=== PATIENT | female | born 1945 | race Caucasian/White ===

== ENCOUNTER 2020-03-30 02:59 | Inpatient (IN) | payer MEDICARE, OTHER ==
[2020-03-30] MEDS ORDERED: Sodium Chloride 0.9% 10 ML Syringe FLUSH PRN (03:21)
[2020-03-30] MEDS ORDERED: Lactated Ringers 1,000 ML IV ONE (03:30)
[2020-03-30] MEDS ORDERED: Ondansetron 4 MG/2 ML SDV IV ONE (03:30)
[2020-03-30 04:24] LABS: CHLORIDE,CL 89 mmol/L (98-107)
[2020-03-30 04:25] LABS: ANION GAP 13.7 mmol/L (10-20); SODIUM,NA 124 mmol/L (136-145)
[2020-03-30] MEDS ORDERED: Magnesium Oxide 400 MG Tab PO ONE (05:05)
[2020-03-30] MEDS ORDERED: Magnesium Sulfate/Water 2 GM/50 ML Premix Bag IV ONE (05:05)
[2020-03-30] MEDS: Sodium Chloride 0.9% 1,000 ML IV SCH ×2 (07:30→13:22)
--- NOTE | 2020-03-30 07:39 | EDM.PDOC ---
ED HPI GENERAL MEDICAL PROBLEM - General Chief Complaint: Gastrointestinal Problem Stated Complaint: diarrhea weakness Time Seen by Provider: 03/30/20 03:15 Source of Information: Reports: Patient History Limitations: Reports: No Limitations - History of Present Illness INITIAL COMMENTS - FREE TEXT/NARRATIVE: Patient comes emergency department early this morning with complaints of weakness fatigue and diarrhea. This patient was seen in the clinic yesterday due to a diarrhea that she has had for the past couple of days. She has having 4-8 very liquidy watery stools that has some abdominal cramping with them. She has had no fever or chills. No loss of taste or smell. No cough congestion shortness of breath or difficulty breathing. No fever no chills. No chest pain shortness of breath or difficulty breathing. She does have some abdominal cramping and pain when she has diarrhea but she does not have any abdominal pain otherwise. Some nausea without vomiting. No hematuria dysuria or urinary frequency. No black or tarry stools. She has not traveled anywhere recently she has not been exposed to anyone ill. She has not been on any antibiotics recently either. Treatments SENIOR SOLUTIONS ARCHITECT: Reports: EKG Other Treatments SENIOR SOLUTIONS ARCHITECT: Glucose 122 - Related Data Allergies Allergy/AdvReac Type Severity Reaction Status Date / Time No Known Allergies Allergy Verified 03/30/20 03:33 Home Meds: Home Meds Calcium Carbonate/Vitamin D3 [Calcium 500 + Vit D 400] 1 each PO BIDMEALS 03/30/20 [History] Garlic 1 each PO DAILY 03/30/20 [History] Multivitamin [Multivitamins] 1 each PO DAILY 03/30/20 [History] [place]-3/DHA/Epa/Fish Oil [Fish Oil 1,000 mg Softgel] 1 cap PO DAILY 03/30/20 [History] Simvastatin 10 mg PO DAILY 03/30/20 [History] atenoloL [Atenolol] 25 mg PO DAILY 03/30/20 [History] Past Medical History Cardiovascular History: Reports: High Cholesterol, Hypertension Musculoskeletal History: Reports: Osteoporosis Social & Family History - Tobacco Use Tobacco Use Status *Q: Never Tobacco User ED ROS GENERAL - Review of Systems Review Of Systems: Comprehensive ROS is negative, except as noted in HPI. ED EXAM, GI/ABD - Physical Exam Exam: See Below Exam Limited By: No Limitations General Appearance: Alert, WD/WN, No Apparent Distress Eyes: Bilateral: EOMI Ears: Normal External Exam Nose: Normal Inspection Throat/Mouth: No: Normal Inspection (Oral mucosa is dry. ) Head: Atraumatic, Normocephalic Neck: Normal Inspection, Supple, Non-Tender, Full Range of Motion Respiratory/Chest: No Respiratory Distress, Lungs Clear, Normal Breath Sounds, No Accessory Muscle Use, Chest Non-Tender Cardiovascular: Normal Peripheral Pulses, Regular Rate, Rhythm, Tachycardia GI/Abdominal Exam: Normal Bowel Sounds, Soft, Tender (She has some mild generalized tendernss without guarding or rebound. ), Abnormal Bowel Sounds (Hyperactive. ) (Female) Exam: Deferred Rectal (Female) Exam: Deferred Back Exam: Normal Inspection, Full Range of Motion Extremities: Normal Inspection, Normal Range of Motion, Non-Tender, No Pedal Edema, Normal Capillary Refill Neurological: Alert, Oriented, CN II-XII Intact, Normal Cognition, No Motor/Sensory Deficits Psychiatric: Normal Affect, Normal Mood Skin Exam: Dry, Intact, Normal Color, Cool Course - Vital Signs Last Recorded V/S: Last Vital Signs Temp 98.7 F 03/30/20 03:05 Pulse 94 03/30/20 06:40 Resp 16 03/30/20 06:40 BP 132/89 03/30/20 06:40 Pulse Ox 94 L 03/30/20 06:40 Orthostatic Blood Pressure [ 132/78 Standing] Orthostatic Blood Pressure [ 127/73 Sitting] Orthostatic Blood Pressure [ 131/81 Supine] - Orders/Labs/Meds Orders: Active Orders 24 hr Category Date Time Status Admission Status [Patient Status] [ADT] Routine ADT 03/30/20 07:36 Active EKG Documentation Completion [RC] STAT Care 03/30/20 03:21 Active CLOSTRIDIUM DIFFICILE TOX RFLX [MREF] Stat Lab 03/30/20 03:30 Ordered CORONAVIRUS COVID-19 RAPID [MOLEC] Stat Lab 03/30/20 07:15 Received CULTURE URINE [RM] Urgent Lab 03/30/20 05:20 Received Sodium Chloride 0.9% [Saline Flush] Med 03/30/20 03:21 Active 10 ml FLUSH ASDIRECTED PRN Isolation [COMM] Stat Oth 03/30/20 03:31 Ordered Peripheral IV Insertion Adult [OM.PC] Stat Oth 03/30/20 03:21 Ordered Medication Orders Sodium Chloride (Saline Flush) 10 ml FLUSH ASDIRECTED PRN PRN Reason: Keep Vein Open Labs: Laboratory Tests 03/30/20 03/30/20 03/30/20 Range/Units 03:55 03:55 03:55 WBC 2.9 L (4.0-10.0) x10^3/uL RBC 4.27 (4.00-5.50) x10^6/uL Hgb 13.3 (12.0-16.0) g/dL Hct 37.7 (33.0-47.0) % MCV 88.3 (78.0-93.0) fL MCH 31.1 (26.0-32.0) pg MCHC 35.3 (32.0-36.0) g/dL RDW Coeff of Amado 11.5 (10.0-15.0) % Plt Count 147 (130-400) x10^3/uL Add Manual Diff Yes Neutrophils % (Manual) 56 (50-80) % Band Neutrophils % 18 H (0-6) % Lymphocytes % (Manual) 12 L (25-50) % Monocytes % (Manual) 11 (2-11) % Metamyelocytes % 3 H (0) % Platelet Estimate Adequate Sodium 124 L* (136-145) mmol/L Potassium 3.7 (3.5-5.1) mmol/L Chloride 89 L (98-107) mmol/L Carbon Dioxide 25 (21-32) mmol/L Anion Gap 13.7 (10-20) mmol/L BUN 9 (7-18) mg/dL Creatinine 1.1 H (0.55-1.02) mg/dL Est Cr Clr Drug Dosing 39.92 mL/min Estimated GFR (MDRD) 49 Glucose 116 H (74-106) mg/dL Lactic Acid 1.1 (0.4-2.0) mmol/L Calcium 8.2 L (8.5-10.1) mg/dL Corrected Calcium 8.52 (8.5-10.1) mg/dL Magnesium 1.4 L (1.8-2.4) mg/dL Total Bilirubin 0.5 (0.2-1.0) mg/dL AST 28 (15-37) U/L ALT 21 (14-59) U/L Alkaline Phosphatase 68 (46-116) U/L Troponin I < 0.017 (<=0.056) ng/mL Total Protein 7.5 (6.4-8.2) g/dL Albumin 3.6 (3.4-5.0) g/dL Globulin 3.9 Albumin/Globulin Ratio 0.92 Urine Color (YELLOW) POC Urine Appearance (CLEAR) POC Urine pH (5.0-8.0) Ur Specific [place] (1.005-1.030) POC Urine Protein (NEGATIVE) POC Ur Glucose (UA) (NEGATIVE) POC Urine Ketones (NEGATIVE) POC Ur Occult Blood (NEGATIVE) POC Urine Nitrite (NEGATIVE) POC Urine Bilirubin (NEGATIVE) POC Urine Urobilinogen (0.2) POC U Leukocyte Esteras (NEGATIVE) Urine RBC (NOT SEEN) /HPF Urine WBC (NOT SEEN) /HPF Ur Squamous Epith Cells (NOT SEEN) /HPF Urine Bacteria (NOT SEEN) Urine Mucus (NOT SEEN) 03/30/20 Range/Units 05:20 WBC (4.0-10.0) x10^3/uL RBC (4.00-5.50) x10^6/uL Hgb (12.0-16.0) g/dL Hct (33.0-47.0) % MCV (78.0-93.0) fL MCH (26.0-32.0) pg MCHC (32.0-36.0) g/dL RDW Coeff of Amado (10.0-15.0) % Plt Count (130-400) x10^3/uL Add Manual Diff Neutrophils % (Manual) (50-80) % Band Neutrophils % (0-6) % Lymphocytes % (Manual) (25-50) % Monocytes % (Manual) (2-11) % Metamyelocytes % (0) % Platelet Estimate Sodium (136-145) mmol/L Potassium (3.5-5.1) mmol/L Chloride (98-107) mmol/L Carbon Dioxide (21-32) mmol/L Anion Gap (10-20) mmol/L BUN (7-18) mg/dL Creatinine (0.55-1.02) mg/dL Est Cr Clr Drug Dosing mL/min Estimated GFR (MDRD) Glucose (74-106) mg/dL Lactic Acid (0.4-2.0) mmol/L Calcium (8.5-10.1) mg/dL Corrected Calcium (8.5-10.1) mg/dL Magnesium (1.8-2.4) mg/dL Total Bilirubin (0.2-1.0) mg/dL AST (15-37) U/L ALT (14-59) U/L Alkaline Phosphatase (46-116) U/L Troponin I (<=0.056) ng/mL Total Protein (6.4-8.2) g/dL Albumin (3.4-5.0) g/dL Globulin Albumin/Globulin Ratio Urine Color Maylin H (YELLOW) POC Urine Appearance Clear (CLEAR) POC Urine pH 6.5 (5.0-8.0) Ur Specific [place] 1.005 (1.005-1.030) POC Urine Protein Trace H (NEGATIVE) POC Ur Glucose (UA) Negative (NEGATIVE) POC Urine Ketones >=160 H (NEGATIVE) POC Ur Occult Blood Negative (NEGATIVE) POC Urine Nitrite Negative (NEGATIVE) POC Urine Bilirubin Negative (NEGATIVE) POC Urine Urobilinogen 0.2 (0.2) POC U Leukocyte Esteras Small H (NEGATIVE) Urine RBC 0-5 (NOT SEEN) /HPF Urine WBC 0-5 (NOT SEEN) /HPF Ur Squamous Epith Cells Rare H (NOT SEEN) /HPF Urine Bacteria Not seen (NOT SEEN) Urine Mucus Not seen (NOT SEEN) Meds: Medications Generic Name Dose Route Start Last Admin Trade Name Freq PRN Reason Stop Dose Admin Sodium Chloride 10 ml 03/30/20 03:21 Saline Flush FLUSH ASDIRECTED PRN Keep Vein Open Discontinued Medications Generic Name Dose Route Start Last Admin Trade Name Freq PRN Reason Stop Dose Admin Lactated Ringer's 1,000 mls @ 999 mls/hr 03/30/20 03:30 03/30/20 03:36 Ringers, Lactated IV 03/30/20 04:30 999 mls/hr ONETIME ONE Administration Magnesium Oxide 400 mg 03/30/20 05:05 03/30/20 05:11 Magnesium Oxide PO 03/30/20 05:06 400 mg ONETIME ONE Administration Magnesium Sulfate 2 gm 03/30/20 05:05 03/30/20 05:11 Magnesium Sulfate In Water Premix IV 03/30/20 05:06 2 gm ONETIME ONE Administration Ondansetron HCl 4 mg 03/30/20 03:30 03/30/20 03:37 Zofran IV 03/30/20 03:31 4 mg ONETIME ONE Administration - Re-Assessments/Exams Free Text/Narrative Re-Assessment/Exam: 03/30/20 07:51 Stool culture pending. Labs drawn Zofran 4mg IVP LR 500ml bolus and then 200mls/hr Magnesium is low at 1.4, 2 grams IVPB of mag sulfate and 400mg PO. Sodium is 124 which is down from 126 in the clinic yesterday. Her COVID test is pending. She has a mildly elevated Creat as well at 1.1 which is up from 0.95 yesterday in the clinic. After a liter of fluid she still feels very tired and fatigued and just generalizer malaise as well. With her sodium and diarrhea I called and spoke with DR. Mejia who is the patient PCP. HPI ER COURSE findings and concerns were relayed to her verbally over the phone. She accepted the patient into her care for inpatient management and wants a rapid covid test. COVID rapid positive. I discussed the plan of care with the patient. I discussed that she is also COVID positive. She will have to notify her family members in close contacts for quarantine. She is comfortable with the plan of admission her questions are answered. Departure - Departure Time of Disposition: 07:03 Disposition: Admitted As Inpatient 68 Clinical Impression: Hyponatremia, COVID-19, ROSEANNE (acute kidney injury) Diarrhea Qualifiers: Diarrhea type: unspecified type Qualified Code(s): R19.7 - Diarrhea, unspecified - Discharge Information Referrals: Paulette Mejia MD [Primary Care Provider] - Forms: ED Department Discharge Sepsis Event Note (ED) - Evaluation Sepsis Screening Result: No Definite Risk - Focused Exam Vital Signs: Vital Signs Temp Pulse Resp BP Pulse Ox 03/30/20 06:40 94 16 132/89 94 L 03/30/20 04:53 90 16 135/79 99 03/30/20 03:45 96 16 145/85 H 97 03/30/20 03:05 98.7 F 106 H 16 156/92 H 98 - My Orders Last 24 Hours: My Active Orders 03/30/20 03:21 EKG Documentation Completion [RC] STAT Sodium Chloride 0.9% [Saline Flush] 10 ml FLUSH ASDIRECTED PRN Peripheral IV Insertion Adult [OM.PC] Stat 03/30/20 03:30 CLOSTRIDIUM DIFFICILE TOX RFLX [MREF] Stat 03/30/20 03:31 Isolation [COMM] Stat 03/30/20 05:20 CULTURE URINE [RM] Urgent 03/30/20 07:15 CORONAVIRUS COVID-19 RAPID [MOLEC] Stat 03/30/20 07:36 Admission Status [Patient Status] [ADT] Routine - Assessment/Plan Last 24 Hours: My Active Orders 03/30/20 03:21 EKG Documentation Completion [RC] STAT Sodium Chloride 0.9% [Saline Flush] 10 ml FLUSH ASDIRECTED PRN Peripheral IV Insertion Adult [OM.PC] Stat 03/30/20 03:30 CLOSTRIDIUM DIFFICILE TOX RFLX [MREF] Stat 03/30/20 03:31 Isolation [COMM] Stat 03/30/20 05:20 CULTURE URINE [RM] Urgent 03/30/20 07:15 CORONAVIRUS COVID-19 RAPID [MOLEC] Stat 03/30/20 07:36 Admission Status [Patient Status] [ADT] Routine
--- NOTE | 2020-03-30 10:08 | PCM.HP.2 ---
H&P History of Present Illness - General Date of Service: 03/30/20 Admit Problem/Dx: Admission Diagnosis/Problem Admission Diagnosis/Problem Hyponatremia Source of Information: Patient History Limitations: Reports: No Limitations - History of Present Illness Initial Comments - Free Text/Narative: Ms. Doe is a 74 yo female with PMH of hypertension, hyperlipidemia, and over weight BMI who presented to the ER for evaluation of worsening generalized weakness over the past 24 hours. I had seen her yesterday via telemedicine for evaluation of diarrhea, fatigue, and generalized weakness that had been progressively worsening over the preceding 4 days. She had been having at least 3 loose stools/day. She underwent a COVID test as well as a CBC and BMP. COVID test is pending, CBC was normal, and BMP showed moderate hyponatremia. She was advised to increase intake of electrolyte containing solutions and come in for a recheck of labs today. However, overnight, she felt more generally weak and tired so presented to the ER for further evaluation. She did take 2 Imodium yes terday, which has basically resolved her diarrhea. She still has an unsettled feeling in her stomach and has basically no appetite. She has not had any abdominal pain and no vomiting. She has not had any respiratory symptoms at all. She denies any fever or chills. She was exposed to COVID about 2 weeks ago when she was around a friend who had this. - Related Data Allergies/Adverse Reactions: Allergies Allergy/AdvReac Type Severity Reaction Status Date / Time No Known Allergies Allergy Verified 03/30/20 03:33 Home Medications: Home Meds Calcium Carbonate/Vitamin D3 [Calcium 500 + Vit D 400] 1 each PO BIDMEALS 03/15 12/02 [History] Garlic 1 each PO DAILY 03/30/20 [History] Multivitamin [Multivitamins] 1 each PO DAILY 03/30/20 [History] [place]-3/DHA/Epa/Fish Oil [Fish Oil 1,000 mg Softgel] 1 cap PO DAILY 03/30/20 [H istory] Simvastatin 10 mg PO DAILY 03/30/20 [History] atenoloL [Atenolol] 25 mg PO DAILY 03/30/20 [History] Past Medical History Cardiovascular History: Reports: High Cholesterol, Hypertension Musculoskeletal History: Reports: Osteoporosis - Infectious Disease History Infectious Disease History: Reports: Novel Coronavirus - Past Surgical History HEENT Surgical History: Reports: Oral Surgery GI Surgical History: Reports: Colonoscopy Social & Family History - Family History Cardiac: Reports: CAD - Tobacco Use Tobacco Use Status *Q: Never Tobacco User Used Tobacco, but Quit: No Second Hand Smoke Exposure: No - Caffeine Use Caffeine Use: Reports: Coffee Caffeine Use Comment: 1 cups a day - Alcohol Use Alcohol Use History: No Alcohol Use in Last Twelve Months: No - Recreational Drug Use Recreational Drug Use: No - Living Situation & Occupation Living situation: Reports: , Alone Occupation: Retired H&P Review of Systems - Review of Systems: Review Of Systems: See Below General: Reports: Malaise, Weakness, Fatigue, Decreased Appetite. Denies: Fever, Chills HEENT: Reports: No Symptoms Pulmonary: Reports: No Symptoms Cardiovascular: Reports: No Symptoms Gastrointestinal: Reports: Diarrhea, Decreased Appetite Genitourinary: Reports: No Symptoms Musculoskeletal: Reports: No Symptoms Skin: Reports: No Symptoms Psychiatric: Reports: No Symptoms Neurological: Reports: No Symptoms Exam - Exam Exam: See Below - Vital Signs Vital Signs: Last Vital Signs Temp 37.2 C 03/30/20 09:47 Pulse 97 03/30/20 09:47 Resp 18 03/30/20 08:02 BP 151/83 H 03/30/20 09:47 Pulse Ox 91 L 03/30/20 09:47 Orthostatic Blood Pressure [ 132/78 Standing] Orthostatic Blood Pressure [ 127/73 Sitting] Orthostatic Blood Pressure [ 131/81 Supine] Weight: 77.7 kg - Exam General: Alert, Oriented, Cooperative HEENT: Conjunctiva Clear, Mucosa Moist & [place] Neck: Supple, Trachea Midline Lungs: Clear to Auscultation, Normal Respiratory Effort Cardiovascular: Regular Rate, Regular Rhythm, Normal S1, Normal S2 GI/Abdominal Exam: Normal Bowel Sounds, Soft, Non-Tender, No Organomegaly, No Distention, No Mass Extremities: Normal Inspection, Non-Tender, No Pedal Edema Peripheral Pulses: 2+: Radial (L), Radial (R) Skin: Warm, Dry, Intact Neuro Extensive - Mental Status: Alert, Oriented x3, Normal Mood/Affect, Normal Cognition - Patient Data Lab Results Last 24 hrs: Laboratory Results - last 24 hr 03/30/20 03/30/20 03/30/20 Range/Units 03:55 03:55 03:55 WBC 2.9 L (4.0-10.0) x10^3/uL RBC 4.27 (4.00-5.50) x10^6/uL Hgb 13.3 (12.0-16.0) g/dL Hct 37.7 (33.0-47.0) % MCV 88.3 (78.0-93.0) fL MCH 31.1 (26.0-32.0) pg MCHC 35.3 (32.0-36.0) g/dL RDW Coeff of Amado 11.5 (10.0-15.0) % Plt Count 147 (130-400) x10^3/uL Add Manual Diff Yes Neutrophils % (Manual) 56 (50-80) % Band Neutrophils % 18 H (0-6) % Lymphocytes % (Manual) 12 L (25-50) % Monocytes % (Manual) 11 (2-11) % Metamyelocytes % 3 H (0) % Platelet Estimate Adequate Sodium 124 L* (136-145) mmol/L Potassium 3.7 (3.5-5.1) mmol/L Chloride 89 L (98-107) mmol/L Carbon Dioxide 25 (21-32) mmol/L Anion Gap 13.7 (10-20) mmol/L BUN 9 (7-18) mg/dL Creatinine 1.1 H (0.55-1.02) mg/dL Est Cr Clr Drug Dosing 39.92 mL/min Estimated GFR (MDRD) 49 Glucose 116 H (74-106) mg/dL Lactic Acid 1.1 (0.4-2.0) mmol/L Calcium 8.2 L (8.5-10.1) mg/dL Corrected Calcium 8.52 (8.5-10.1) mg/dL Magnesium 1.4 L (1.8-2.4) mg/dL Total Bilirubin 0.5 (0.2-1.0) mg/dL AST 28 (15-37) U/L ALT 21 (14-59) U/L Alkaline Phosphatase 68 (46-116) U/L Troponin I < 0.017 (<=0.056) ng/mL Total Protein 7.5 (6.4-8.2) g/dL Albumin 3.6 (3.4-5.0) g/dL Globulin 3.9 Albumin/Globulin Ratio 0.92 Urine Color (YELLOW) POC Urine Appearance (CLEAR) POC Urine pH (5.0-8.0) Ur Specific [place] (1.005-1.030) POC Urine Protein (NEGATIVE) POC Ur Glucose (UA) (NEGATIVE) POC Urine Ketones (NEGATIVE) POC Ur Occult Blood (NEGATIVE) POC Urine Nitrite (NEGATIVE) POC Urine Bilirubin (NEGATIVE) POC Urine Urobilinogen (0.2) POC U Leukocyte Esteras (NEGATIVE) Urine RBC (NOT SEEN) /HPF Urine WBC (NOT SEEN) /HPF Ur Squamous Epith Cells (NOT SEEN) /HPF Urine Bacteria (NOT SEEN) Urine Mucus (NOT SEEN) SARS CoV-2 RNA Rapid HARPER (NEGATIVE) 03/30/20 03/30/20 Range/Units 05:20 07:15 WBC (4.0-10.0) x10^3/uL RBC (4.00-5.50) x10^6/uL Hgb (12.0-16.0) g/dL Hct (33.0-47.0) % MCV (78.0-93.0) fL MCH (26.0-32.0) pg MCHC (32.0-36.0) g/dL RDW Coeff of Amado (10.0-15.0) % Plt Count (130-400) x10^3/uL Add Manual Diff Neutrophils % (Manual) (50-80) % Band Neutrophils % (0-6) % Lymphocytes % (Manual) (25-50) % Monocytes % (Manual) (2-11) % Metamyelocytes % (0) % Platelet Estimate Sodium (136-145) mmol/L Potassium (3.5-5.1) mmol/L Chloride (98-107) mmol/L Carbon Dioxide (21-32) mmol/L Anion Gap (10-20) mmol/L BUN (7-18) mg/dL Creatinine (0.55-1.02) mg/dL Est Cr Clr Drug Dosing mL/min Estimated GFR (MDRD) Glucose (74-106) mg/dL Lactic Acid (0.4-2.0) mmol/L Calcium (8.5-10.1) mg/dL Corrected Calcium (8.5-10.1) mg/dL Magnesium (1.8-2.4) mg/dL Total Bilirubin (0.2-1.0) mg/dL AST (15-37) U/L ALT (14-59) U/L Alkaline Phosphatase (46-116) U/L Troponin I (<=0.056) ng/mL Total Protein (6.4-8.2) g/dL Albumin (3.4-5.0) g/dL Globulin Albumin/Globulin Ratio Urine Color Maylin H (YELLOW) POC Urine Appearance Clear (CLEAR) POC Urine pH 6.5 (5.0-8.0) Ur Specific [place] 1.005 (1.005-1.030) POC Urine Protein Trace H (NEGATIVE) POC Ur Glucose (UA) Negative (NEGATIVE) POC Urine Ketones >=160 H (NEGATIVE) POC Ur Occult Blood Negative (NEGATIVE) POC Urine Nitrite Negative (NEGATIVE) POC Urine Bilirubin Negative (NEGATIVE) POC Urine Urobilinogen 0.2 (0.2) POC U Leukocyte Esteras Small H (NEGATIVE) Urine RBC 0-5 (NOT SEEN) /HPF Urine WBC 0-5 (NOT SEEN) /HPF Ur Squamous Epith Cells Rare H (NOT SEEN) /HPF Urine Bacteria Not seen (NOT SEEN) Urine Mucus Not seen (NOT SEEN) SARS CoV-2 RNA Rapid HARPER Positive H (NEGATIVE) Result Diagrams: 03/30/20 03:55 03/30/20 03:55 Sepsis Event Note - Evaluation Sepsis Screening Result: No Definite Risk - Focused Exam Vital Signs: Vital Signs Temp Pulse Resp BP Pulse Ox 03/30/20 09:47 37.2 C 97 151/83 H 91 L 03/30/20 08:02 36.8 C 98 18 137/85 93 L 03/30/20 06:40 94 16 132/89 94 L 03/30/20 04:53 90 16 135/79 99 03/30/20 03:45 96 16 145/85 H 97 03/30/20 03:05 37.1 C 106 H 16 156/92 H 98 - Problem List (1) Hyponatremia SNOMED Code(s): 50306112 ICD Code: E87.1 - HYPO-OSMOLALITY AND HYPONATREMIA Status: Acute Current Visit: Yes (2) COVID-19 SNOMED Code(s): 139952386 ICD Code: U07.1 - COVID-19 Status: Acute Current Visit: Yes (3) Hypertension SNOMED Code(s): 28647309 ICD Code: I10 - ESSENTIAL (PRIMARY) HYPERTENSION Status: Chronic Current Visit: Yes Qualifiers: Hypertension type: essential hypertension Qualified Code(s): I10 - Essential (primary) hypertension (4) Hyperlipidemia SNOMED Code(s): 52067208 ICD Code: E78.5 - HYPERLIPIDEMIA, UNSPECIFIED Status: Chronic Current Visit: Yes Qualifiers: Hyperlipidemia type: unspecified Qualified Code(s): E78.5 - Hyperlipidemia, unspecified (5) Overweight SNOMED Code(s): 590121555 ICD Code: E66.3 - OVERWEIGHT Status: Chronic Current Visit: Yes Problem List Initiated/Reviewed/Updated: Yes Orders Last 24hrs: Active Orders 24 hr Category Date Time Status Admission Status [Patient Status] [ADT] Routine ADT 03/30/20 07:36 Active Notify Provider Vital Signs [RC] ASDIRECTED Care 03/30/20 09:47 Ordered Oxygen Therapy [RC] PRN Care 03/30/20 09:47 Ordered VTE/DVT Education [RC] PER UNIT ROUTINE Care 03/30/20 09:47 Ordered Vital Signs [RC] Q4H Care 03/30/20 09:47 Ordered Regular Diet [DIET] Diet 03/30/20 Lunch Ordered BASIC METABOLIC PANEL,BMP [CHEM] Routine Lab 03/30/20 15:00 Ordered CULTURE URINE [RM] Urgent Lab 03/30/20 05:20 Received Enoxaparin [Lovenox] Med 03/30/20 10:00 Ordered 40 mg SUBCUT DAILY Simvastatin [Zocor] Med 03/31/20 08:00 Ordered 10 mg PO DAILY Sodium Chloride 0.9% [Normal Saline] 1,000 ml Med 03/30/20 08:00 Active IV ASDIRECTED Sodium Chloride 0.9% [Saline Flush] Med 03/30/20 03:21 Active 10 ml FLUSH ASDIRECTED PRN atenoloL [Tenormin] Med 03/30/20 10:00 Ordered 25 mg PO DAILY Isolation [COMM] Stat Oth 03/30/20 03:31 Ordered Peripheral IV Insertion Adult [OM.PC] Stat Oth 03/30/20 03:21 Ordered Resuscitation Status Routine Resus Stat 03/30/20 09:47 Ordered Medication Orders Atenolol (Tenormin) 25 mg PO DAILY JOHANNY Enoxaparin Sodium (Lovenox) 40 mg SUBCUT DAILY JOHANNY Sodium Chloride (Normal Saline) 1,000 mls @ 125 mls/hr IV ASDIRECTED JOHANNY Last Admin: 03/30/20 07:30 Dose: 125 mls/hr Documented by: WILBERT Simvastatin (Zocor) 10 mg PO DAILY JOHANNY Sodium Chloride (Saline Flush) 10 ml FLUSH ASDIRECTED PRN PRN Reason: Keep Vein Open Assessment/Plan Comment:: 74 yo female admitted with hyponatremia secondary to diarrhea related to COVID- 19. #1 Hyponatremia - Likely related to losses from diarrhea. In the absence of lung symptoms, unlikely to represent SIADH. - Presumed to be acute given abrupt onset of symptoms and sodium of 135 checked 1 month ago. - Will give 0.9% NaCl @ 125 cc/hr to replace volume. - Recheck sodium around noon. - If improving at an appropriate rate (goal 8-12 mEq/24 hours), will continue the same. Will adjust as needed. - If sodium has worsened, then this is likely an SIADH type picture and treatment then would be fluid restriction. #2 COVID-19 - Patient has only GI symptoms and no respiratory symptoms. Lungs are clear. - Given absence of respiratory symptoms, there is no role for dexamethasone or remdesivir. - Will continue to monitor closely. #3 Hypertension #4 Hyperlipidemia #5 Overweight - Continue home medications. Patient will be admitted to acute - anticipate she will be admitted for 2 mid nights but even if she is not, her diagnoses warrant inpatient status anyway. Code status is full - discussed on admission. Patient will be started on lovenox for VTE prophylaxis.
[2020-03-30] MEDS: Enoxaparin 40 MG/0.4 ML Syringe SUBCUT SCH (10:45)
[2020-03-30] MEDS: Acetaminophen 325 MG Tab PO PRN (10:46)
[2020-03-30] MEDS: Atenolol 25 MG Tab PO SCH (10:46)
[2020-03-30 12:54] LABS: ANION GAP 14.5 mmol/L (10-20)
--- NOTE | 2020-03-30 12:59 | PCM.SN.2 ---
- Free Text/Narrative Note: Sodium is up to 130 but creatinine is also increased. Will decrease fluid rate to 50 cc/hr and recheck again at 6 pm. Note need to be judicious with IV fluids in the setting of COVID, even in the absence of respiratory symptoms; however, would not d/c the fluids yet given creatinine increase. If sodium stable/improve d at 6 pm recheck, will d/c IV fluids and recheck in the am. Will also place her on continuous pulse oximetry as well.
[2020-03-30] MEDS: Zinc (Zinc Gluconate) 50 MG Tab PO SCH (16:56)
[2020-03-30] MEDS: Cholecalciferol (Vitamin D3) 25 MCG Tab PO SCH (16:56)
[2020-03-30 18:28] LABS: ANION GAP 14.4 mmol/L (10-20)
[2020-03-30] MEDS: Ondansetron 4 MG Tab.DIS PO PRN (18:51)
[2020-03-30] MEDS: Ascorbic Acid 500 MG Tab PO SCH (20:18)
[2020-03-31] MEDS: Enoxaparin 40 MG/0.4 ML Syringe SUBCUT SCH (08:27)
[2020-03-31] MEDS: Cholecalciferol (Vitamin D3) 25 MCG Tab PO SCH (08:28)
[2020-03-31] MEDS: Ascorbic Acid 500 MG Tab PO SCH ×2 (08:28→20:55)
[2020-03-31] MEDS: Zinc (Zinc Gluconate) 50 MG Tab PO SCH (08:28)
[2020-03-31] MEDS: Atenolol 25 MG Tab PO SCH (08:29)
[2020-03-31] MEDS: Simvastatin 10 MG Tab PO SCH (08:31)
[2020-03-31] MEDS ORDERED: Loperamide 2 MG Cap PO PRN (11:17)
[2020-03-31] MEDS: Acetaminophen 325 MG Tab PO PRN ×2 (11:37→21:03)
[2020-03-31] MEDS: Ondansetron 4 MG Tab.DIS PO PRN (11:37)
--- NOTE | 2020-03-31 12:01 | PN ---
Progress Note for ASHLEE KILPATRICKP Date: 03/31/2020 Room #: VM.210 CHIEF COMPLAINT: Hyponatremia. SUBJECTIVE: A 74-year-old female patient with a past medical history of hypertension, hyperlipidemia, and elevated BMI, was admitted to the acute care floor yesterday for hyponatremia and weakness. The patient originally had a 3- to 4-day history of progressively getting weak and was seen by Telemedicine and evaluated for diarrhea and fatigue. The patient did come into the emergency room yesterday and was found to be hyponatremic. The patient states today that she is having considerable diarrhea. The patient is feeling very nauseated. She has not vomited. The patient states that she continues to feel very generally weak. The patient is not having any headaches, dizziness, or lightheadedness. No chest pain or shortness of breath. The patient denies any palpitations or cough. The patient complains of generalized abdominal discomfort. The patient has not had any vomiting, but feeling very nauseated. OBJECTIVE: Vital Signs: Temperature 99.6, pulse is 93, blood pressure 113/76, oxygen saturation 92% on 2 L, respiratory rate 16. General: The patient is alert. The patient does not appear to be in any acute distress. The patient is cooperative. Skin: Clean, warm, dry, and intact. Abdomen: Bowel sounds are hyperactive x4. Generalized tenderness. Cardiovascular: Regular rate and rhythm. No murmur. Respiratory: Lungs are clear to auscultation. Neurological: The patient is alert. The patient is oriented to person, place, and time. No focal neurological deficits. LABORATORY WORK: Results from 03/30/2020 at 1800. D-dimer 0.74. BMP: Sodium 132, potassium 4.4, chloride 97, CO2 is 25, anion gap is 14.4, BUN is 11, creatinine 1.3, GFR is 40, glucose is 106, calcium 8.7. Ferritin 867. LDH 285. ASSESSMENT: 1. Hyponatremia. 2. Positive coronavirus disease 19. 3. Weakness. 4. Diarrhea. 5. Nausea. 6. Hypertension. 7. Hyperlipidemia. 8. Overweight. PLAN: A 74-year-old female with a past medical history of hypertension and hyperlipidemia, was admitted to the acute care floor at [facility] for hyponatremia secondary to diarrhea related to COVID-19. The patient will continue on IV fluid hydration. The patient continues to have diarrhea. We will start Imodium as needed. We will also add Zofran for her nausea. The patient states she still does not have an appetite. Therefore, we will start the patient on Ensure. All laboratory work from admission was thoroughly discussed with the patient. We will recheck laboratory work in the morning. Continue with Lovenox for DVT prophylaxis. The patient continues to be a full code. Continue with acute cares for now. Will follow closely. TB: 03/31/2020 11:24:11 MODL: 03/31/2020 11:54:06 /[id number]
[2020-03-31] MEDS: Ondansetron 4 MG/2 ML SDV IVPUSH PRN (18:14)
[2020-04-01] MEDS: Acetaminophen 325 MG Tab PO PRN ×3 (05:28→19:52)
[2020-04-01 08:34] LABS: ANION GAP 13.4 mmol/L (10-20)
[2020-04-01] MEDS: Ascorbic Acid 500 MG Tab PO SCH ×2 (08:35→19:47)
[2020-04-01] MEDS: Zinc (Zinc Gluconate) 50 MG Tab PO SCH (08:35)
[2020-04-01] MEDS: Enoxaparin 40 MG/0.4 ML Syringe SUBCUT SCH (08:35)
[2020-04-01] MEDS: Simvastatin 10 MG Tab PO SCH (08:35)
[2020-04-01] MEDS: Atenolol 25 MG Tab PO SCH (08:36)
[2020-04-01] MEDS: Cholecalciferol (Vitamin D3) 25 MCG Tab PO SCH (08:36)
[2020-04-01] MEDS: Sodium Chloride 0.9% 1,000 ML IV SCH (09:16)
--- NOTE | 2020-04-01 11:48 | PN ---
Progress Note for ASHLEE KILPATRICKP Date: 04/01/2020 Room #: VM.210 CHIEF COMPLAINT: Hyponatremia. SUBJECTIVE: Hospital day #3 for a 74-year-old female patient with past medical history of hypertension, hyperlipidemia, elevated BMI, who was admitted to the acute care floor on Thursday for hyponatremia and weakness. The patient originally had a 3 to 4-day history of progressively getting weak and was seen by Telemedicine and evaluated for diarrhea and fatigue. The patient did come into the emergency room last [place], and was found to be hyponatremic. The patient was also having considerable abdominal cramping and diarrhea. The patient was also feeling very nauseated. She did not have any vomiting. The patient complained of weakness. The patient was not having any headache, dizziness, or lightheadedness. The patient denies any chest pain or shortness of breath. The patient denies any palpitations or cough. The patient states that her abdominal discomfort and diarrhea has gotten better since starting on the Imodium. The patient states she does not have any nausea today since she was given Zofran. The patient has not eaten any solid food, but is drinking Ensure. The patient continues to be on oxygen for hypoxia. OBJECTIVE: Vital Signs: Temperature 99.4, pulse is 91, blood pressure 156/73, oxygen saturation 94% on 2 L, and respiratory rate 15. General: The patient is alert. The patient does not appear to be in any acute distress. The patient is cooperative. Skin: Warm, dry, and intact. Abdomen: Bowel sounds continue to be hyperactive x4. Slight generalized tenderness with palpation. Cardiovascular: Regular rate and rhythm, no murmur. Respiratory: Lungs are clear to auscultation. Neurological: The patient is alert. The patient is oriented to person, place, and time. No focal neurological deficits. LABORATORY WORK: 1. CBC: White blood cell count 2.4, hemoglobin 12.2, hematocrit 35.7, platelets are 140,000. 2. BMP: Sodium 133, potassium 4.4, chloride 100, CO2 of 24, anion gap 13.4, BUN 10, creatinine 1.2, GFR is 44, glucose 106, calcium 8.1. ASSESSMENT: 1. Hyponatremia, improving. 2. Positive COVID-19. 3. Weakness. 4. Diarrhea. 5. Nausea, improved. 6. Hypertension. 7. Hyperlipidemia. 8. Overweight. PLAN: Hospital day #3 for a 74-year-old female patient with past medical history of hypertension, hyperlipidemia, admitted to the acute care floor at [facility] for hyponatremia secondary to diarrhea related to COVID-19. The patient will continue on IV fluid hydration. Continue with Imodium as needed. Continue with Zofran as needed. The patient's sodium is improving nicely. Discussed with the patient the laboratory results from today. Continue with Lovenox for DVT prophylaxis. Possible discharge tomorrow if the patient can remain off oxygen and her laboratory work continues to improve. I would like to see the patient able to eat solid foods prior to discharge. We will continue to monitor closely. TB: 04/01/2020 11:15:19 MODL: 04/01/2020 11:44:43 /[id number]
[2020-04-01] MEDS: Ondansetron 4 MG/2 ML SDV IVPUSH PRN (12:33)
[2020-04-01] MEDS: Ondansetron 4 MG Tab.DIS PO PRN (18:50)
[2020-04-02] MEDS: Sodium Chloride 0.9% 1,000 ML IV SCH (04:18)
[2020-04-02 07:08] LABS: ANION GAP 11.6 mmol/L (10-20)
[2020-04-02] MEDS: Ascorbic Acid 500 MG Tab PO SCH ×2 (08:05→20:44)
[2020-04-02] MEDS: Cholecalciferol (Vitamin D3) 25 MCG Tab PO SCH (08:06)
[2020-04-02] MEDS: Zinc (Zinc Gluconate) 50 MG Tab PO SCH (08:06)
[2020-04-02] MEDS: Atenolol 25 MG Tab PO SCH (08:06)
[2020-04-02] MEDS: Enoxaparin 40 MG/0.4 ML Syringe SUBCUT SCH (08:07)
[2020-04-02] MEDS: Simvastatin 10 MG Tab PO SCH (08:07)
[2020-04-02] MEDS: Ondansetron 4 MG Tab.DIS PO PRN (08:10)
[2020-04-02] MEDS ORDERED: Ondansetron 4 MG Tab.DIS PO PRN (11:09)
--- NOTE | 2020-04-02 11:59 | PCM.PN ---
- General Info Date of Service: 04/02/20 Subjective Update: 74 yo female hospital day #4 admitted for hyponatremia secondary to diarrhea from COVID-19. Patient had been improving throughout the weekend but states that she is doing much worse today. She has had an increase in the "rumbling" sensations in her abdomen over the past 24 hours. Her appetite is very poor and she is concerned about how many days she has gone without eating any food. Any time she tries to eat, this increases her stomach symptoms and she has more nausea. She has not been vomiting. The zofran has not been helping much with her nausea. She has not had any true abdominal pain. She has continued with diarrhea. She has also had some low grade fevers. She continues to feel generally weak and fatigued. She still has not had any cough or shortness of breath. - Review of Systems General: Reports: Fever, Weakness, Fatigue HEENT: Reports: No Symptoms Pulmonary: Reports: No Symptoms Cardiovascular: Reports: No Symptoms Gastrointestinal: Reports: Decreased Appetite, Diarrhea, Nausea Genitourinary: Reports: No Symptoms Musculoskeletal: Reports: No Symptoms Skin: Reports: No Symptoms Neurological: Reports: No Symptoms - Patient Data Vitals - Most Recent: Last Vital Signs Temp 37.5 C 04/02/20 04:29 Pulse 77 04/02/20 08:06 Resp 16 04/02/20 04:29 BP 165/69 H 04/02/20 08:06 Pulse Ox 95 04/02/20 04:29 Orthostatic Blood Pressure [ 132/78 Standing] Orthostatic Blood Pressure [ 127/73 Sitting] Orthostatic Blood Pressure [ 131/81 Supine] Weight - Most Recent: 77.7 kg I&O - Last 24 Hours: Intake & Output 04/01/20 04/02/20 04/02/20 22:59 06:59 14:59 Intake Total 620 Balance 620 Lab Results Last 24 Hours: Laboratory Results - last 24 hr 04/02/20 04/02/20 Range/Units 06:45 06:45 WBC 2.1 L (4.0-10.0) x10^3/uL RBC 3.99 L (4.00-5.50) x10^6/uL Hgb 12.3 (12.0-16.0) g/dL Hct 35.8 (33.0-47.0) % MCV 89.7 (78.0-93.0) fL MCH 30.8 (26.0-32.0) pg MCHC 34.4 (32.0-36.0) g/dL RDW Coeff of [place] 11.8 (10.0-15.0) % Plt Count 155 (130-400) x10^3/uL Neut % (Auto) 72.4 (50.0-80.0) % Lymph % (Auto) 18.9 L (25.0-50.0) % [place] % (Auto) 8.7 (2.0-11.0) % Eos % (Auto) 0.0 (0.0-4.0) % Baso % (Auto) 0.0 L (0.2-1.2) % Sodium 134 L (136-145) mmol/L Potassium 4.6 (3.5-5.1) mmol/L Chloride 101 (98-107) mmol/L Carbon Dioxide 26 (21-32) mmol/L Anion Gap 11.6 (10-20) mmol/L BUN 7 (7-18) mg/dL Creatinine 1.1 H (0.55-1.02) mg/dL Est Cr Clr Drug Dosing 39.92 mL/min Estimated GFR (MDRD) 49 Glucose 99 (74-106) mg/dL Calcium 8.4 L (8.5-10.1) mg/dL Domenico Results Last 24 Hours: Microbiology 03/30/20 05:20 Urine Culture - Final Urine, Clean Catch MIXED AMADOR DAY 2 Med Orders - Current: Current Medications Acetaminophen (Tylenol) 650 mg PO Q6H PRN PRN Reason: Pain/Fever Last Admin: 04/01/20 19:52 Dose: 650 mg Documented by: Ascorbic Acid (Vitamin C) 1,000 mg PO BID [facility] Last Admin: 04/02/20 08:05 Dose: 1,000 mg Documented by: Atenolol (Tenormin) 25 mg PO DAILY [facility] Last Admin: 04/02/20 08:06 Dose: 25 mg Documented by: Cholecalciferol (Vitamin D3) 25 mcg PO DAILY [facility] Last Admin: 04/02/20 08:06 Dose: 25 mcg Documented by: Dexamethasone (Dexamethasone) 6 mg PO DAILY [facility] Enoxaparin Sodium (Lovenox) 40 mg SUBCUT DAILY [facility] Last Admin: 04/02/20 08:07 Dose: 40 mg Documented by: Sodium Chloride (Normal Saline) 1,000 mls @ 50 mls/hr IV ASDIRECTED [facility] Last Admin: 04/02/20 04:18 Dose: 50 mls/hr Documented by: Loperamide HCl (Imodium) 2 mg PO Q4H PRN PRN Reason: Diarrhea Last Admin: 03/31/20 11:37 Dose: 2 mg Documented by: Ondansetron HCl (Zofran) 4 mg IVPUSH Q8H PRN PRN Reason: Nausea Last Admin: 04/01/20 12:33 Dose: 4 mg Documented by: Ondansetron HCl (Zofran Odt) 4 mg PO Q6H PRN PRN Reason: Nausea/Vomiting Promethazine HCl (Phenergan) 12.5 mg PO Q4H PRN PRN Reason: Nausea/Vomiting Simvastatin (Zocor) 10 mg PO DAILY [facility] Last Admin: 04/02/20 08:07 Dose: 10 mg Documented by: Sodium Chloride (Saline Flush) 10 ml FLUSH ASDIRECTED PRN PRN Reason: Keep Vein Open Zinc Gluconate (Zinc) 200 mg PO DAILY [facility] Last Admin: 04/02/20 08:06 Dose: 200 mg Documented by: Discontinued Medications Lactated Ringer's (Ringers, Lactated) 1,000 mls @ 999 mls/hr IV ONETIME ONE Stop: 03/30/20 04:30 Last Admin: 03/30/20 03:36 Dose: 999 mls/hr Documented by: Magnesium Oxide (Magnesium Oxide) 400 mg PO ONETIME ONE Stop: 03/30/20 05:06 Last Admin: 03/30/20 05:11 Dose: 400 mg Documented by: Magnesium Sulfate (Magnesium Sulfate In Water Premix) 2 gm IV ONETIME ONE Stop: 03/30/20 05:06 Last Admin: 03/30/20 05:11 Dose: 2 gm Documented by: Ondansetron HCl (Zofran) 4 mg IV ONETIME ONE Stop: 03/30/20 03:31 Last Admin: 03/30/20 03:37 Dose: 4 mg Documented by: Ondansetron HCl (Zofran Odt) 4 mg PO Q8H PRN PRN Reason: Nausea/Vomiting Last Admin: 04/02/20 08:10 Dose: 4 mg Documented by: - Exam General: Alert, Oriented, Cooperative, No Acute Distress HEENT: Mucous Membr. Moist/[place] Neck: Supple, Trachea Midline, No Thyromegaly. No: Lymphadenopathy Lungs: Clear to Auscultation, Normal Respiratory Effort Cardiovascular: Regular Rate, Regular Rhythm, No Murmurs GI/Abdominal Exam: Soft, Non-Tender, No Organomegaly, No Distention, No Mass, Abnormal Bowel Sounds (hyperactive) Extremities: Normal Inspection, Normal Range of Motion, Non-Tender, No Pedal Edema Peripheral Pulses: 2+: Radial (L), Radial (R) Skin: Warm, Dry, Intact Sepsis Event Note - Evaluation Sepsis Screening Result: No Definite Risk - Focused Exam Vital Signs: Vital Signs Temp Pulse Pulse Resp BP BP Pulse Ox 04/02/20 08:06 77 165/69 H 04/02/20 04:29 37.5 C 16 165/69 H 95 04/02/20 02:00 37.5 C 77 16 117/58 L 98 - Problem List & Annotations (1) Hyponatremia SNOMED Code(s): 69943067 Code(s): E87.1 - HYPO-OSMOLALITY AND HYPONATREMIA Status: Acute Current Visit: Yes (2) COVID-19 SNOMED Code(s): 885369506 Code(s): U07.1 - COVID-19 Status: Acute Current Visit: Yes (3) Hypertension SNOMED Code(s): 98028884 Code(s): I10 - ESSENTIAL (PRIMARY) HYPERTENSION Status: Chronic Current Visit: Yes Qualifiers: Hypertension type: essential hypertension Qualified Code(s): I10 - Essential (primary) hypertension (4) Hyperlipidemia SNOMED Code(s): 90915363 Code(s): E78.5 - HYPERLIPIDEMIA, UNSPECIFIED Status: Chronic Current Visit: Yes Qualifiers: Hyperlipidemia type: unspecified Qualified Code(s): E78.5 - Hyperlipidemia, unspecified (5) Overweight SNOMED Code(s): 807151532 Code(s): E66.3 - OVERWEIGHT Status: Chronic Current Visit: Yes - Problem List Review Problem List Initiated/Reviewed/Updated: Yes - My Orders Last 24 Hours: My Active Orders 04/02/20 11:08 Promethazine [Phenergan] 12.5 mg PO Q4H PRN 04/02/20 11:09 Ondansetron [Zofran ODT] 4 mg PO Q6H PRN 04/02/20 11:15 dexAMETHasone 6 mg PO DAILY - Assessment Assessment:: 74 yo female admitted with hyponatremia secondary to diarrhea and poor oral intake as a result of COVID-19. Hyponatremia is now resolved but she is not eating/drinking enough to prevent recurrence of this upon discharge home at this time. She had been improving over the weekend but is worse again today. Has consistently been on 2L of oxygen to maintain saturations >94% but has had no respiratory symptoms. - Plan Plan:: 74 yo female admitted with hyponatremia secondary to diarrhea related to COVID- 19. #1 Hyponatremia, resolving - Na is just under normal today at 134. - She is continuing on gentle IV fluids due to inability to keep up with much oral intake. - Recheck daily now. #2 COVID-19 - Patient has only GI symptoms and no respiratory symptoms. Lungs are clear. - Reassessed need for dexamethasone and remdesivir due to worsening of symptoms again today. She is agreeable to a trial of dexamethasone. Reviewed EUA for remdesivir as well as potential risks and benefits of this; she declines to start this medication at this time but will consider that. - Will optimize her nausea regimen with addition of phenergan and allowing the zofran to be given more frequently. - Will also continue to wean oxygen as able. - Criteria for discharge will be ability to eat/drink enough to stay hydrated and avoid recurrence of hyponatremia. - If unable to wean oxygen by that time, she will be discharged home with home oxygen to follow-up in clinic. #3 Hypertension #4 Hyperlipidemia #5 Overweight - Continue home medications. Patient will be remain on acute - criteria for discharge as noted above. Hopefully this will be in the next 2-3 days. Code status is full - discussed on admission. Patient is on lovenox for VTE prophylaxis.
[2020-04-02] MEDS: Promethazine 25 MG Tab PO PRN ×2 (13:49→20:43)
[2020-04-02] MEDS: Dexamethasone 4 MG Tab PO SCH (13:50)
[2020-04-02] MEDS: Acetaminophen 325 MG Tab PO PRN (20:52)
[2020-04-03] MEDS: Enoxaparin 40 MG/0.4 ML Syringe SUBCUT SCH (09:22)
[2020-04-03] MEDS: Ascorbic Acid 500 MG Tab PO SCH ×2 (09:23→19:44)
[2020-04-03] MEDS: Cholecalciferol (Vitamin D3) 25 MCG Tab PO SCH (09:23)
[2020-04-03] MEDS: Zinc (Zinc Gluconate) 50 MG Tab PO SCH (09:23)
[2020-04-03] MEDS: Simvastatin 10 MG Tab PO SCH (09:23)
[2020-04-03] MEDS: Promethazine 25 MG Tab PO PRN ×3 (09:23→19:44)
[2020-04-03] MEDS: Atenolol 25 MG Tab PO SCH (09:25)
[2020-04-03] MEDS: Dexamethasone 4 MG Tab PO SCH (09:25)
[2020-04-03] MEDS: Acetaminophen 325 MG Tab PO PRN (09:26)
--- NOTE | 2020-04-03 09:27 | PCM.PN ---
- General Info Date of Service: 04/03/20 Subjective Update: 74 yo female hospital day #5 admitted initially with severe hyponatremia secondary to diarrhea from COVID. Patient is feeling somewhat better today from the GI standpoint. Her nausea is better controlled and she is having less GI discomfort. She continues with diarrhea but this is improving in terms of smaller volumes with the stools she is having. No abdominal pain. She has not felt feverish. She does note today that she has started to have a cough and is also feeling somewhat short of breath when she gets out of bed. Her oxygen requirements have not increased overnight. She still feels generally weak and tired. She is pleased with the improvement in GI symptoms and is planning to try some Ensure this morning. - Review of Systems General: Reports: No Symptoms HEENT: Reports: No Symptoms Pulmonary: Reports: Shortness of Breath, Cough Cardiovascular: Reports: No Symptoms Gastrointestinal: Reports: Diarrhea, Nausea. Denies: Abdominal Pain, Vomiting Genitourinary: Reports: No Symptoms Musculoskeletal: Reports: No Symptoms Skin: Reports: No Symptoms Neurological: Reports: No Symptoms - Patient Data Vitals - Most Recent: Last Vital Signs Temp 36.4 C 04/03/20 06:00 Pulse 72 04/03/20 06:00 Resp 17 04/03/20 06:00 BP 133/79 04/03/20 06:00 Pulse Ox 95 04/03/20 06:00 Orthostatic Blood Pressure [ 132/78 Standing] Orthostatic Blood Pressure [ 127/73 Sitting] Orthostatic Blood Pressure [ 131/81 Supine] Weight - Most Recent: 77.7 kg I&O - Last 24 Hours: Intake & Output 04/02/20 04/03/20 04/03/20 22:59 06:59 14:59 Intake Total 1353 800 Balance 1353 800 Med Orders - Current: Current Medications Acetaminophen (Tylenol) 650 mg PO Q6H PRN PRN Reason: Pain/Fever Last Admin: 04/02/20 20:52 Dose: 650 mg Documented by: Ascorbic Acid (Vitamin C) 1,000 mg PO BID [facility] Last Admin: 04/02/20 20:44 Dose: 1,000 mg Documented by: Atenolol (Tenormin) 25 mg PO DAILY [facility] Last Admin: 04/02/20 08:06 Dose: 25 mg Documented by: Cholecalciferol (Vitamin D3) 25 mcg PO DAILY [facility] Last Admin: 04/02/20 08:06 Dose: 25 mcg Documented by: Dexamethasone (Dexamethasone) 6 mg PO DAILY [facility] Last Admin: 04/02/20 13:50 Dose: 6 mg Documented by: Enoxaparin Sodium (Lovenox) 40 mg SUBCUT DAILY [facility] Last Admin: 04/02/20 08:07 Dose: 40 mg Documented by: Sodium Chloride (Normal Saline) 1,000 mls @ 50 mls/hr IV ASDIRECTED [facility] Last Admin: 04/02/20 04:18 Dose: 50 mls/hr Documented by: Loperamide HCl (Imodium) 2 mg PO Q4H PRN PRN Reason: Diarrhea Last Admin: 03/31/20 11:37 Dose: 2 mg Documented by: Ondansetron HCl (Zofran) 4 mg IVPUSH Q8H PRN PRN Reason: Nausea Last Admin: 04/01/20 12:33 Dose: 4 mg Documented by: Ondansetron HCl (Zofran Odt) 4 mg PO Q6H PRN PRN Reason: Nausea/Vomiting Promethazine HCl (Phenergan) 12.5 mg PO Q4H PRN PRN Reason: Nausea/Vomiting Last Admin: 04/02/20 20:43 Dose: 12.5 mg Documented by: Simvastatin (Zocor) 10 mg PO DAILY [facility] Last Admin: 04/02/20 08:07 Dose: 10 mg Documented by: Sodium Chloride (Saline Flush) 10 ml FLUSH ASDIRECTED PRN PRN Reason: Keep Vein Open Zinc Gluconate (Zinc) 200 mg PO DAILY [facility] Last Admin: 04/02/20 08:06 Dose: 200 mg Documented by: Discontinued Medications Lactated Ringer's (Ringers, Lactated) 1,000 mls @ 999 mls/hr IV ONETIME ONE Stop: 03/30/20 04:30 Last Admin: 03/30/20 03:36 Dose: 999 mls/hr Documented by: Magnesium Oxide (Magnesium Oxide) 400 mg PO ONETIME ONE Stop: 03/30/20 05:06 Last Admin: 03/30/20 05:11 Dose: 400 mg Documented by: Magnesium Sulfate (Magnesium Sulfate In Water Premix) 2 gm IV ONETIME ONE Stop: 03/30/20 05:06 Last Admin: 03/30/20 05:11 Dose: 2 gm Documented by: Ondansetron HCl (Zofran) 4 mg IV ONETIME ONE Stop: 03/30/20 03:31 Last Admin: 03/30/20 03:37 Dose: 4 mg Documented by: Ondansetron HCl (Zofran Odt) 4 mg PO Q8H PRN PRN Reason: Nausea/Vomiting Last Admin: 04/02/20 08:10 Dose: 4 mg Documented by: - Exam General: Alert, Oriented, Cooperative, No Acute Distress HEENT: Mucous Membr. Moist/[place] Neck: Supple, Trachea Midline, No JVD. No: Lymphadenopathy Lungs: Normal Respiratory Effort, Crackles (left lower lung field) Cardiovascular: Regular Rate, Regular Rhythm, No Murmurs GI/Abdominal Exam: Normal Bowel Sounds, Soft, Non-Tender, No Organomegaly, No Distention, No Mass Extremities: Normal Inspection, Non-Tender, No Pedal Edema Peripheral Pulses: 2+: Radial (L), Radial (R) Skin: Warm, Dry, Intact Sepsis Event Note - Evaluation Sepsis Screening Result: No Definite Risk - Focused Exam Vital Signs: Vital Signs Temp Pulse Resp BP Pulse Ox 04/03/20 06:00 36.4 C 72 17 133/79 95 04/03/20 02:00 36.6 C 90 17 109/65 94 L 04/02/20 22:00 35.8 C L 85 16 84/58 L 95 - Problem List & Annotations (1) COVID-19 SNOMED Code(s): 597985071 Code(s): U07.1 - COVID-19 Status: Acute Current Visit: Yes (2) Hyponatremia SNOMED Code(s): 41638136 Code(s): E87.1 - HYPO-OSMOLALITY AND HYPONATREMIA Status: Acute Current Visit: Yes (3) Hypertension SNOMED Code(s): 94001284 Code(s): I10 - ESSENTIAL (PRIMARY) HYPERTENSION Status: Chronic Current Visit: Yes Qualifiers: Hypertension type: essential hypertension Qualified Code(s): I10 - Essential (primary) hypertension (4) Hyperlipidemia SNOMED Code(s): 91641993 Code(s): E78.5 - HYPERLIPIDEMIA, UNSPECIFIED Status: Chronic Current Visit: Yes Qualifiers: Hyperlipidemia type: unspecified Qualified Code(s): E78.5 - Hyperlipidemia, unspecified (5) Overweight SNOMED Code(s): 791655103 Code(s): E66.3 - OVERWEIGHT Status: Chronic Current Visit: Yes - Problem List Review Problem List Initiated/Reviewed/Updated: Yes - My Orders Last 24 Hours: My Active Orders 04/02/20 11:08 Promethazine [Phenergan] 12.5 mg PO Q4H PRN 04/02/20 11:09 Ondansetron [Zofran ODT] 4 mg PO Q6H PRN 04/02/20 11:15 dexAMETHasone 6 mg PO DAILY 04/04/20 05:11 CBC WITH AUTO DIFF [HEME] Routine COMPREHENSIVE METABOLIC PN,CMP [CHEM] Routine - Assessment Assessment:: 74 yo female admitted with hyponatremia secondary to diarrhea and poor oral intake as a result of COVID-19. Hyponatremia is now resolved. GI symptoms are improved today so she is going to try eat/drink more. However, she is now having respiratory symptoms. O2 requirements remain stable. - Plan Plan:: 74 yo female admitted with hyponatremia secondary to diarrhea related to COVID- 19. #1 COVID-19 - Patient now with both GI symptoms and respiratory symptoms. - Dexamethasone started yesterday. Will continue the 10 day course. - Discussed recommendations are stronger at this point for remdesivir given onset of respiratory symptoms. She remains hesitant about this and will talk with her daughter. - Continue current nausea regimen since this seems to be working better. - She will try more oral intake today to see how this goes. - Will also continue to wean oxygen as able. - Criteria for discharge now more complicated given onset of respiratory symptoms. However, if her O2 requirements remain stable and she is able to eat/drink enough to stay hydrated and avoid recurrence of hyponatremia, then d/c home would be reasonable. Will continue to reassess for these criteria on a daily basis. - Patient does now have crackles on lung exam, which is not surprising with onset of respiratory symptoms. Secondary pneumonia is still unlikely the absence of recurrent fever. However, if she does get a fever, then she would need to be started on antibiotics to cover for this. #2 Hyponatremia, resolving - Na just under normal yesterday. Did not check today. - Given onset of respiratory symptoms and improved GI symptoms today, will d/c IV fluids after this bag is finished. - Will monitor I/O today and resume if need be. - Recheck labs tomorrow. #3 Hypertension #4 Hyperlipidemia #5 Overweight - Continue home medications. Patient will be remain on acute - criteria for discharge as noted above. Hopefully this will be in the next 2-3 days. Code status is full - discussed on admission. Patient is on lovenox for VTE prophylaxis.
[2020-04-04 07:06] LABS: ANION GAP 13.2 mmol/L (10-20)
[2020-04-04] MEDS: Promethazine 25 MG Tab PO PRN ×2 (08:31→12:12)
[2020-04-04] MEDS: Enoxaparin 40 MG/0.4 ML Syringe SUBCUT SCH (08:31)
[2020-04-04] MEDS: Zinc (Zinc Gluconate) 50 MG Tab PO SCH (08:33)
[2020-04-04] MEDS: Simvastatin 10 MG Tab PO SCH (08:33)
[2020-04-04] MEDS: Atenolol 25 MG Tab PO SCH (08:33)
[2020-04-04] MEDS: Ascorbic Acid 500 MG Tab PO SCH (08:33)
[2020-04-04] MEDS: Dexamethasone 4 MG Tab PO SCH (08:34)
[2020-04-04] MEDS: Cholecalciferol (Vitamin D3) 25 MCG Tab PO SCH (08:34)
[2020-04-04] MEDS: Acetaminophen 325 MG Tab PO PRN (08:53)
--- NOTE | 2020-04-04 09:17 | PCM.DCSUM1 ---
Discharge Summary - Hospital Course Brief History: Ms. Doe is a 74 yo female who was admitted with severe hyponatremia after presenting to the ER for evaluation of increasing generalized weakness in the setting of diarrhea and decreased appetite from COVID. - Discharge Data Discharge Date: 04/04/20 Discharge Disposition: Home, Self-Care 01 Condition: Good - Referral to Home Health Primary Care Physician: Paulette Mejia MD - Discharge Diagnosis/Problem(s) (1) COVID-19 SNOMED Code(s): 941889966 ICD Code: U07.1 - COVID-19 Status: Acute Current Visit: Yes (2) Hyponatremia SNOMED Code(s): 43618906 ICD Code: E87.1 - HYPO-OSMOLALITY AND HYPONATREMIA Status: Acute Current Visit: Yes (3) Hypertension SNOMED Code(s): 51489650 ICD Code: I10 - ESSENTIAL (PRIMARY) HYPERTENSION Status: Chronic Current Visit: Yes Qualifiers: Hypertension type: essential hypertension Qualified Code(s): I10 - Essential (primary) hypertension (4) Hyperlipidemia SNOMED Code(s): 24719441 ICD Code: E78.5 - HYPERLIPIDEMIA, UNSPECIFIED Status: Chronic Current Visit: Yes Qualifiers: Hyperlipidemia type: unspecified Qualified Code(s): E78.5 - Hyperlipidemia, unspecified (5) Overweight SNOMED Code(s): 461582875 ICD Code: E66.3 - OVERWEIGHT Status: Chronic Current Visit: Yes - Patient Summary/Data Operative Procedure(s) Performed: none Complications: none Consults: Consultations 04/03/20 10:53 Consult to Physical Therapy [PT Evaluation and Treatment] [CONS] Routine Labs Pending at D/C: none Recommended Follow-up Testing/Procedures: none Planned Operative Procedure(s) after DC: none Hospital Course: The patient was admitted and given gentle IV hydration. Her sodium progressively improved. She had ongoing nausea, decreased appetite, and diarrhea. Her nausea was finally controlled with a combination of zofran and phenergan. Over the past 24 hours, she has finally been able to eat and drink better. Her IV fluids were stopped yesterday morning. Her labs remained improved today. 2 days ago, she did have onset of a cough and increased shortness of breath; therefore, she was started on dexamethasone. She was offered remdesivir and declined to start this. She has since improved and is coughing less with normal respiratory function. She has been on 2L of oxygen via nasal cannula since the day of admission for mild hypoxia. Her hospitalization has otherwise been uncomplicated. She will be discharged home on oxygen to follow-up with me in clinic in 1 week. - Patient Instructions Diet: Usual Diet as Tolerated Activity: As Tolerated Driving: May Drive Today Showering/Bathing: May Shower Notify Provider of: Fever, Increased Pain, Nausea and/or Vomiting - Discharge Plan *PRESCRIPTION DRUG MONITORING PROGRAM REVIEWED*: No *COPY OF PRESCRIPTION DRUG MONITORING REPORT IN PATIENT KEITH: No Prescriptions/Med Rec: dexAMETHasone [Dexamethasone] 6 mg PO DAILY #7 tablet Ondansetron [Zofran ODT] 4 mg PO Q6H PRN #20 tab.dis PRN Reason: Nausea/Vomiting Home Medications: Home Meds Calcium Carbonate/Vitamin D3 [Calcium 500 + Vit D 400] 1 each PO BIDMEALS 03/30/20 [History] Garlic 1 each PO DAILY 03/30/20 [History] Multivitamin [Multivitamins] 1 each PO DAILY 03/30/20 [History] [place]-3/DHA/Epa/Fish Oil [Fish Oil 1,000 mg Softgel] 1 cap PO DAILY 03/30/20 [History] Simvastatin 10 mg PO DAILY 03/30/20 [History] atenoloL [Atenolol] 25 mg PO DAILY 03/30/20 [History] Acetaminophen [Tylenol] 650 mg PO Q6H PRN tablet 04/04/20 [Rx] Loperamide [Imodium] 2 mg PO Q4H PRN cap 04/04/20 [Rx] Ondansetron [Zofran ODT] 4 mg PO Q6H PRN #20 tab.dis 04/04/20 [Rx] Promethazine [Phenergan] 12.5 mg PO Q4H PRN #20 tablet 04/04/20 [Rx] dexAMETHasone [Dexamethasone] 6 mg PO DAILY #7 tablet 04/04/20 [Rx] Oxygen Therapy Mode: Nasal Cannula Oxygen Flow Rate (L/min): 2 Forms: ED Department Discharge Referrals: Paulette Mejia MD [Primary Care Provider] - 04/11/20 1:30 pm (You have a follow up appt. with Dr. Vilma Mejia on April 11, 2020 at 1:30----[facility] - Discharge Summary/Plan Comment DC Time >30 min.: No - General Info Date of Service: 04/04/20 Subjective Update: Patient has been doing much better over the past 24 hours. Appetite is still not great but her nausea is well controlled; she has been eating and drinking well. She is still having diarrhea but this is less often and of less volume. No fever or chills. She has noticed a decrease in her cough. She also states that the shortness of breath and fatigue when she gets up and moves around are basically stable since when she first became ill. No new concerns overnight. - Review of Systems General: Reports: No Symptoms HEENT: Reports: No Symptoms Pulmonary: Reports: Shortness of Breath, Cough Cardiovascular: Reports: No Symptoms Gastrointestinal: Reports: Diarrhea. Denies: Abdominal Pain, Nausea, Vomiting Genitourinary: Reports: No Symptoms Musculoskeletal: Reports: No Symptoms Skin: Reports: No Symptoms Neurological: Reports: No Symptoms - Patient Data Vitals - Most Recent: Last Vital Signs Temp 36.5 C 04/04/20 05:49 Pulse 68 04/04/20 08:33 Resp 16 04/04/20 05:49 BP 166/68 H 04/04/20 08:33 Pulse Ox 92 L 04/04/20 08:00 Orthostatic Blood Pressure [ 132/78 Standing] Orthostatic Blood Pressure [ 127/73 Sitting] Orthostatic Blood Pressure [ 131/81 Supine] Weight - Most Recent: 77.7 kg I&O - Last 24 hours: Intake & Output 04/03/20 04/04/20 04/04/20 22:59 06:59 14:59 Intake Total 690 450 Output Total 4 Balance 690 446 Lab Results - Last 24 hrs: Laboratory Results - last 24 hr 04/04/20 04/04/20 Range/Units 06:30 06:30 WBC 6.5 (4.0-10.0) x10^3/uL RBC 4.17 (4.00-5.50) x10^6/uL Hgb 12.9 (12.0-16.0) g/dL Hct 36.8 (33.0-47.0) % MCV 88.2 (78.0-93.0) fL MCH 30.9 (26.0-32.0) pg MCHC 35.1 (32.0-36.0) g/dL RDW Coeff of Amado 11.7 (10.0-15.0) % Plt Count 217 (130-400) x10^3/uL Add Manual Diff Yes Neutrophils % (Manual) 74 (50-80) % Band Neutrophils % 7 H (0-6) % Lymphocytes % (Manual) 6 L (25-50) % Monocytes % (Manual) 8 (2-11) % Eosinophils % (Manual) 2 (0-4) % Metamyelocytes % 1 H (0) % Blast Cells % 2 H (0) % Platelet Estimate Adequate Sodium 139 (136-145) mmol/L Potassium 4.2 (3.5-5.1) mmol/L Chloride 103 (98-107) mmol/L Carbon Dioxide 27 (21-32) mmol/L Anion Gap 13.2 (10-20) mmol/L BUN 18 (7-18) mg/dL Creatinine 1.1 H (0.55-1.02) mg/dL Est Cr Clr Drug Dosing 39.92 mL/min Estimated GFR (MDRD) 49 Glucose 117 H (74-106) mg/dL Calcium 8.6 (8.5-10.1) mg/dL Corrected Calcium 9.32 (8.5-10.1) mg/dL Total Bilirubin 0.3 (0.2-1.0) mg/dL AST 41 H (15-37) U/L ALT 37 (14-59) U/L Alkaline Phosphatase 54 (46-116) U/L Total Protein 7.3 (6.4-8.2) g/dL Albumin 3.1 L (3.4-5.0) g/dL Globulin 4.2 Albumin/Globulin Ratio 0.74 ROXANNE Results - Last 24 hrs: Microbiology 03/30/20 20:00 Clostridioides difficile (PCR) - Final Stool / Feces - Stool, Liquid Med Orders - Current: Current Medications Acetaminophen (Tylenol) 650 mg PO Q6H PRN PRN Reason: Pain/Fever Last Admin: 04/04/20 08:53 Dose: 650 mg Documented by: Ascorbic Acid (Vitamin C) 1,000 mg PO BID [facility] Last Admin: 04/04/20 08:33 Dose: 1,000 mg Documented by: Atenolol (Tenormin) 25 mg PO DAILY [facility] Last Admin: 04/04/20 08:33 Dose: 25 mg Documented by: Cholecalciferol (Vitamin D3) 25 mcg PO DAILY [facility] Last Admin: 04/04/20 08:34 Dose: 25 mcg Documented by: Dexamethasone (Dexamethasone) 6 mg PO DAILY [facility] Last Admin: 04/04/20 08:34 Dose: 6 mg Documented by: Enoxaparin Sodium (Lovenox) 40 mg SUBCUT DAILY [facility] Last Admin: 04/04/20 08:31 Dose: 40 mg Documented by: Loperamide HCl (Imodium) 2 mg PO Q4H PRN PRN Reason: Diarrhea Last Admin: 03/31/20 11:37 Dose: 2 mg Documented by: Ondansetron HCl (Zofran) 4 mg IVPUSH Q8H PRN PRN Reason: Nausea Last Admin: 04/01/20 12:33 Dose: 4 mg Documented by: Ondansetron HCl (Zofran Odt) 4 mg PO Q6H PRN PRN Reason: Nausea/Vomiting Promethazine HCl (Phenergan) 12.5 mg PO Q4H PRN PRN Reason: Nausea/Vomiting Last Admin: 04/04/20 08:31 Dose: 12.5 mg Documented by: Simvastatin (Zocor) 10 mg PO DAILY [facility] Last Admin: 04/04/20 08:33 Dose: 10 mg Documented by: Sodium Chloride (Saline Flush) 10 ml FLUSH ASDIRECTED PRN PRN Reason: Keep Vein Open Last Admin: 04/04/20 08:31 Dose: 10 ml Documented by: Zinc Gluconate (Zinc) 200 mg PO DAILY [facility] Last Admin: 04/04/20 08:33 Dose: 200 mg Documented by: Discontinued Medications Lactated Ringer's (Ringers, Lactated) 1,000 mls @ 999 mls/hr IV ONETIME ONE Stop: 03/30/20 04:30 Last Admin: 03/30/20 03:36 Dose: 999 mls/hr Documented by: Sodium Chloride (Normal Saline) 1,000 mls @ 50 mls/hr IV ASDIRECTED [facility] Last Admin: 04/02/20 04:18 Dose: 50 mls/hr Documented by: Magnesium Oxide (Magnesium Oxide) 400 mg PO ONETIME ONE Stop: 03/30/20 05:06 Last Admin: 03/30/20 05:11 Dose: 400 mg Documented by: Magnesium Sulfate (Magnesium Sulfate In Water Premix) 2 gm IV ONETIME ONE Stop: 03/30/20 05:06 Last Admin: 03/30/20 05:11 Dose: 2 gm Documented by: Ondansetron HCl (Zofran) 4 mg IV ONETIME ONE Stop: 03/30/20 03:31 Last Admin: 03/30/20 03:37 Dose: 4 mg Documented by: Ondansetron HCl (Zofran Odt) 4 mg PO Q8H PRN PRN Reason: Nausea/Vomiting Last Admin: 04/02/20 08:10 Dose: 4 mg Documented by: - Exam General: Reports: Alert, Oriented, Cooperative, No Acute Distress HEENT: Reports: Mucous Membr. Moist/[place] Lungs: Reports: Normal Respiratory Effort, Crackles (left lower lung - less prominent and smaller in area than yesterday) Cardiovascular: Reports: Regular Rate, Regular Rhythm, No Murmurs GI/Abdominal Exam: Normal Bowel Sounds, Soft, Non-Tender, No Organomegaly, No Distention, No Mass Extremities: Normal Range of Motion, No Pedal Edema, Normal Capillary Refill Skin: Reports: Warm, Dry, Intact
== END 2020-04-04 16:50 | disposition home or self-care (01) | DRG 178 ==
LOC: VM.ED 02:59 → VM.MS 07:36
PROVIDERS: ADMIT Nurse Practitioner Family; ATTEND Family Medicine
PROC: 8E0ZXY6 Isolation (ICD-10-PCS; principal; 2020-03-30)
DX: U07.1 COVID-19 (principal); E78.1 Pure hyperglyceridemia; E87.1 Hypo-osmolality and hyponatremia; R19.7 Diarrhea, unspecified; N17.9 Acute kidney failure, unspecified; I10 Essential (primary) hypertension; E78.5 Hyperlipidemia, unspecified; E66.3 Overweight; M81.0 Age-related osteoporosis without current pathological fracture; E78.00 Pure hypercholesterolemia, unspecified; Z68.29 Body mass index [BMI] 29.0-29.9, adult; Z99.81 Dependence on supplemental oxygen; Z79.899 Other long term (current) drug therapy
CPT/HCPCS: 36415; 80048; 80053; 81000; 82728; 83605; 83615; 83735; 84484; 85025; 85379; 87086; 87493; 93005; 96374; 96375; 97162-GP; 99284; 99285-25; A9270-GY; J1650; J2405; J3475; J7030; J7120; J8540; U0002

== ENCOUNTER 2021-06-07 09:59 | Emergency (ER) | payer MEDICARE, OTHER ==
[2021-06-07] MEDS ORDERED: Sodium Chloride 0.9% 1,000 ML IV SCH (10:45)
[2021-06-07 11:22] LABS: CHLORIDE,CL 98 mmol/L (98-107); SODIUM,NA 131 mmol/L (136-145)
[2021-06-07 11:27] LABS: ANION GAP 19.5 mmol/L (5-15)
[2021-06-07] MEDS ORDERED: Loperamide 2 MG Cap PO ONE (11:35)
--- NOTE | 2021-06-07 11:51 | EDM.PDOC ---
ED HPI GENERAL MEDICAL PROBLEM - General Chief Complaint: Gastrointestinal Problem Stated Complaint: nausea and diarrhea Time Seen by Provider: 06/07/21 10:15 Source of Information: Reports: Patient History Limitations: Reports: No Limitations - History of Present Illness INITIAL COMMENTS - FREE TEXT/NARRATIVE: Nausea and diarrhea for around three days. Is concerned about COVID as she states this is how she presented when she had COVID in past. Took Zofran at home. Onset: Gradual Onset Date: 06/04/21 Quality: Reports: Other (no pain, only nausea) Severity: Mild Improves with: Reports: Medication Associated Symptoms: Reports: Other (nausea and diarrhea) Treatments BARREL CHARRER: Reports: Other (see below) (zofran) Other Treatments BARREL CHARRER: zofran - Related Data Allergies Allergy/AdvReac Type Severity Reaction Status Date / Time No Known Allergies Allergy Verified 03/30/20 03:33 Home Meds: Home Meds Calcium Carbonate/Vitamin D3 [Calcium 500 + Vit D 400] 1 each PO BIDMEALS 03/30/20 [History] Garlic 1 each PO DAILY 03/30/20 [History] Multivitamin [Multivitamins] 1 each PO DAILY 03/30/20 [History] [place]-3/DHA/Epa/Fish Oil [Fish Oil 1,000 mg Softgel] 1 cap PO DAILY 03/30/20 [History] Simvastatin 10 mg PO DAILY 03/30/20 [History] atenoloL [Atenolol] 25 mg PO DAILY 03/30/20 [History] Acetaminophen [Tylenol] 650 mg PO Q6H PRN tablet 04/04/20 [Rx] Loperamide [Imodium] 2 mg PO Q4H PRN cap 04/04/20 [Rx] Ondansetron [Zofran ODT] 4 mg PO Q6H PRN #20 tab.dis 04/04/20 [Rx] Promethazine [Phenergan] 12.5 mg PO Q4H PRN #20 tablet 04/04/20 [Rx] dexAMETHasone [Dexamethasone] 6 mg PO DAILY #7 tablet 04/04/20 [Rx] Past Medical History Cardiovascular History: Reports: High Cholesterol, Hypertension Musculoskeletal History: Reports: Osteoporosis - Infectious Disease History Infectious Disease History: Reports: Novel Coronavirus - Past Surgical History HEENT Surgical History: Reports: Oral Surgery GI Surgical History: Reports: Colonoscopy Social & Family History - Family History Cardiac: Reports: CAD - Caffeine Use Caffeine Use: Reports: Coffee Caffeine Use Comment: 1 cups a day - Living Situation & Occupation Living situation: Reports: , Alone Occupation: Retired ED ROS GENERAL - Review of Systems Review Of Systems: Comprehensive ROS is negative, except as noted in HPI. ED EXAM, GI/ABD - Physical Exam Exam: See Below Exam Limited By: No Limitations General Appearance: Alert, No Apparent Distress Eyes: Bilateral: EOMI Ears: Normal External Exam Nose: Normal Inspection, Normal Mucosa, No Blood Throat/Mouth: Normal Lips, Normal Gums, Normal Voice, No Airway Compromise Head: Atraumatic, Normocephalic Neck: Normal Inspection, Supple, Non-Tender, Full Range of Motion Respiratory/Chest: No Respiratory Distress, Lungs Clear, Normal Breath Sounds, No Accessory Muscle Use, Chest Non-Tender Cardiovascular: Normal Peripheral Pulses, Regular Rate, Rhythm GI/Abdominal Exam: Normal Bowel Sounds, Soft, Non-Tender, No Distention Back Exam: Normal Inspection, Full Range of Motion Extremities: Normal Inspection, Normal Range of Motion, Non-Tender, Normal Capillary Refill Neurological: Alert, Oriented, Normal Cognition, Normal Gait, No Motor/Sensory Deficits Psychiatric: Normal Affect, Normal Mood Skin Exam: Warm, Dry, Intact, Normal Color, No Rash Lymphatic: No Adenopathy Course - Vital Signs Last Recorded V/S: Last Vital Signs Temp 98.6 F 06/07/21 09:59 Pulse 110 H 06/07/21 09:59 Resp 20 06/07/21 09:59 BP 147/105 H 06/07/21 09:59 Pulse Ox 97 06/07/21 09:59 - Orders/Labs/Meds Orders: Active Orders 24 hr Category Date Time Status Sodium Chloride 0.9% [Normal Saline] 1,000 ml Med 06/07/21 10:45 Active IV ASDIRECTED Medication Orders Sodium Chloride (Normal Saline) 1,000 mls @ 250 mls/hr IV ASDIRECTED JOHANNY Stop: 06/07/21 14:44 Last Admin: 06/07/21 10:30 Dose: 250 mls/hr Documented by: SAMANTHA Labs: Laboratory Tests 06/07/21 06/07/21 06/07/21 Range/Units 10:41 10:41 10:45 WBC 6.2 (4.0-10.0) x10^3/uL RBC 4.90 (4.00-5.50) x10^6/uL Hgb 14.6 (12.0-16.0) g/dL Hct 41.6 (33.0-47.0) % MCV 84.9 (78.0-93.0) fL MCH 29.8 (26.0-32.0) pg MCHC 35.1 (32.0-36.0) g/dL RDW Coeff of Amado 13.5 (10.0-15.0) % Plt Count 205 (130-400) x10^3/uL Immature Gran % (Auto) 0.20 (0.00-0.43) % Neut % (Auto) 71.5 (50.0-80.0) % Lymph % (Auto) 17.1 L (25.0-50.0) % [place] % (Auto) 10.7 (2.0-11.0) % Eos % (Auto) 0.2 (0.0-4.0) % Baso % (Auto) 0.3 (0.2-1.2) % Neut # (Auto) 4.4 (1.8-7.7) x10^3/uL Lymph # (Auto) 1.1 (1.0-4.8) x10^3/uL [place] # (Auto) 0.7 (0.0-0.8) x10^3/uL Eos # (Auto) 0.0 (0.0-0.5) x10^3/uL Baso # (Auto) 0.0 (0.0-0.2) x10^3/uL Immature Gran # (Auto) 0.01 (0.00-0.07) x10^3/uL Sodium 131 L (136-145) mmol/L Potassium 4.5 (3.5-5.1) mmol/L Chloride 98 (98-107) mmol/L Carbon Dioxide 18 L (21-32) mmol/L Anion Gap 19.5 H (5-15) mmol/L BUN 11 (7-18) mg/dL Creatinine 1.0 (0.55-1.02) mg/dL Est Cr Clr Drug Dosing TNP Estimated GFR (MDRD) 54 Glucose 119 H (70-99) mg/dL Calcium 8.5 (8.5-10.1) mg/dL Corrected Calcium 8.4 L (8.5-10.1) mg/dL Magnesium 2.1 (1.8-2.4) mg/dL Total Bilirubin 0.3 (0.2-1.0) mg/dL AST 25 (15-37) U/L ALT 24 (14-59) U/L Alkaline Phosphatase 86 (46-116) U/L Total Protein 8.5 H (6.4-8.2) g/dL Albumin 4.1 (3.4-5.0) g/dL Globulin 4.4 Albumin/Globulin Ratio 0.93 SARS CoV-2 RNA Rapid HARPER Negative (NEGATIVE) Meds: Medications Generic Name Dose Route Start Last Admin Trade Name Freq PRN Reason Stop Dose Admin Sodium Chloride 1,000 mls @ 250 mls/hr 06/07/21 10:45 06/07/21 10:30 Normal Saline IV 06/07/21 14:44 250 mls/hr ASDIRECTED JOHANNY Administration Discontinued Medications Generic Name Dose Route Start Last Admin Trade Name Freq PRN Reason Stop Dose Admin Loperamide HCl 2 mg 06/07/21 11:35 06/07/21 11:49 Loperamide 2 Mg Cap PO 06/07/21 11:36 2 mg ONETIME ONE Administration - Re-Assessments/Exams Free Text/Narrative Re-Assessment/Exam: 06/07/21 12:38 Gave Normal Saline IVFs, tolerated well. No nausea or diarrhea while in ER. COVID neg. Pt states feeling somewhat improved after fluids. Departure - Departure Time of Disposition: 12:10 Disposition: Home, Self-Care 01 Condition: Good Clinical Impression: Gastroenteritis - Discharge Information Instructions: Viral Gastroenteritis, Adult, [id number], Nausea and Vomiting, Adult, [id number] Referrals: Paulette Mejia MD [Primary Care Provider] - Forms: ED Department Discharge Additional Instructions: Sports drinks, chicken soup, bland diet for next few days. Take the ondansetron that you have for nausea as directed. Immodium per label directions as needed. Follow up with your Primary Care Provider if symptoms worsen or do not resolve. Sepsis Event Note (ED) - Evaluation Sepsis Screening Result: No Definite Risk - Focused Exam Vital Signs: Vital Signs Temp Pulse Resp BP Pulse Ox 06/07/21 09:59 98.6 F 110 H 20 147/105 H 97 - Problem List & Annotations (1) Gastroenteritis SNOMED Code(s): 38284897 Code(s): K52.9 - NONINFECTIVE GASTROENTERITIS AND COLITIS, UNSPECIFIED Status: Acute Current Visit: Yes - Problem List Review Problem List Initiated/Reviewed/Updated: Yes - My Orders Last 24 Hours: My Active Orders 06/07/21 10:45 Sodium Chloride 0.9% [Normal Saline] 1,000 ml IV ASDIRECTED - Assessment/Plan Last 24 Hours: My Active Orders 06/07/21 10:45 Sodium Chloride 0.9% [Normal Saline] 1,000 ml IV ASDIRECTED
== END 2021-06-07 12:10 | disposition home or self-care (01) ==
LOC: VM.ED 09:59
DX: K52.9 Noninfective gastroenteritis and colitis, unspecified (principal); E78.00 Pure hypercholesterolemia, unspecified; I10 Essential (primary) hypertension; Z79.899 Other long term (current) drug therapy; Z20.822 Contact with and (suspected) exposure to COVID-19
CPT/HCPCS: 80053; 83735; 85025; 99284; A9270; J7030; U0002

== ENCOUNTER 2024-03-13 14:40 | Emergency (ER) | payer MEDICARE, OTHER ==
[2024-03-13] MEDS ORDERED: Sodium Chloride 0.9% 10 ML Syringe FLUSH PRN (14:56)
[2024-03-13 15:08] LABS: BASOPHILS PERCENT AUTO 0.1 % (0.2-1.2); EOSINOPHILS PERCENT AUTO 0.3 % (0.0-4.0); HEMATOCRIT 40.1 % (33.0-47.0); HEMOGLOBIN 14.3 g/dL (12.0-16.0); IMMATURE GRAN ABSOLUTE AUTO 0.01 x10^3/uL (0.00-0.07); LYMPHOCYTES ABSOLUTE AUTO 2.7 x10^3/uL (1.0-4.8); LYMPHOCYTES PERCENT AUTO 35.1 % (25.0-50.0); MEAN CORPUSCULAR HEMOGLOBIN 32.5 pg (26.0-32.0); MEAN CORPUSCULAR HGB CONC 35.7 g/dL (32.0-36.0); MEAN CORPUSCULAR VOLUME 91.1 fL (78.0-93.0); MONOCYTES ABSOLUTE AUTO 0.7 x10^3/uL (0.0-0.8); MONOCYTES PERCENT AUTO 9.3 % (2.0-11.0); NEUTROPHILS ABSOLUTE AUTO 4.3 x10^3/uL (1.8-7.7); NEUTROPHILS PERCENT AUTO 55.1 % (50.0-80.0); PLATELET COUNT,PLT 239 x10^3/uL (130-400); WHITE BLOOD CELL COUNT,WBC 7.8 x10^3/uL (4.0-10.0)
[2024-03-13] MEDS: Alum Hydrox/Mag Hydrox/Simeth 30 ML, Lidocaine 2% 15 ML PO ONE (15:08)
[2024-03-13 15:30] LABS: A/G RATIO 0.98; BILIRUBIN TOTAL 0.8 mg/dL (0.2-1.0); CREATININE 1.1 mg/dL (0.55-1.02); EST CRCL DRUG DOSING (CG) 35.99 mL/min; POTASSIUM,K 3.5 mmol/L (3.5-5.1); PROTEIN TOTAL,TP 8.1 g/dL (6.4-8.2)
[2024-03-13 15:38] LABS: ANION GAP 15.5 mmol/L (5-15)
== END 2024-03-13 16:15 | disposition home or self-care (01) ==
LOC: VM.ED 14:40
DX: R07.2 Precordial pain (principal); R07.89 Other chest pain; E78.00 Pure hypercholesterolemia, unspecified; I10 Essential (primary) hypertension; Z86.16 Personal history of COVID-19; Z79.899 Other long term (current) drug therapy
CPT/HCPCS: 71045; 80053; 83690; 84484; 85025; 93005; 93010; 99284; 99285; A9270-GY

== ENCOUNTER 2025-04-21 06:55 | Day surgery (SDC) | payer MEDICARE, OTHER ==
[2025-04-21] MEDS: Lactated Ringers 1,000 ML IV SCH (07:08)
[2025-04-21] MEDS ORDERED: fentaNYL 100 MCG/2 ML SDV ONE (07:52)
[2025-04-21] MEDS ORDERED: Propofol 200 MG/20 ML SDV ONE ×2 (07:52→09:36)
== END 2025-04-21 09:55 | disposition home or self-care (01) ==
LOC: VM.SDS 06:55
PROVIDERS: ATTEND Student in an Organized Health Care Education/Training Program
DX: Z12.11 Encounter for screening for malignant neoplasm of colon (principal); D12.5 Benign neoplasm of sigmoid colon; I10 Essential (primary) hypertension; E78.5 Hyperlipidemia, unspecified; Z86.0101 Personal history of adenomatous and serrated colon polyps; Z79.899 Other long term (current) drug therapy
CPT/HCPCS: 45385; J2704; J3010; J7120; 00811; 88305; 99100